=== PATIENT | female | born 1995 | race Caucasian/White ===

== ENCOUNTER 2022-05-14 03:41 | Emergency (ER) | payer OTHER ==
[~2022-05-14 03:41] MED LIST: FIORICET1 EACH PO
[2022-05-14] MEDS ORDERED: VIBRAMYCIN100 MG PO (04:30)
[2022-05-14] MEDS ORDERED: MEDROL 4MG DOSEP4 MG PO (04:30)
== END 2022-05-14 04:52 | disposition home or self-care (01) ==
LOC: FER 03:41
DX: R22.9 Localized swelling, mass and lump, unspecified (principal); Z88.2 Allergy status to sulfonamides; W57.XXXA Bitten or stung by nonvenomous insect and other nonvenomous arthropods, initial encounter
CPT/HCPCS: 99283